=== PATIENT | male | born 1960 | race Caucasian/White ===

== ENCOUNTER 2016-10-05 08:30 | Day surgery (SDC) | payer MEDICAID, OTHER ==
[~2016-10-05] VITALS: Ht 177.8 cm; Wt 72.6 kg
[2016-10-05] MEDS ORDERED: LACTATED RINGERS 1,000 ML IV SCH ×2 (09:15→09:51)
[2016-10-05] MEDS ORDERED: SIMETHICONE 40 MG/0.6 ML 30ML ONE ×2 (09:56→14:32)
[2016-10-05] MEDS ORDERED: MIDAZOLAM HCL 5 MG/5 ML VIAL ONE (09:57)
[2016-10-05] MEDS ORDERED: FENTANYL CITRATE/PF 50MCG/ML 2ML VIAL ONE (09:57)
[2016-10-05] MEDS ORDERED: CEFAZOLIN 1000MG PREMIX 50 ML IV ONE (09:57)
[2016-10-05] MEDS ORDERED: FENT-70 TD (10:18)
[2016-10-05] MEDS ORDERED: MOME13HF2 IH (10:18)
[2016-10-05] MEDS ORDERED: HYDR4TAB56 PO (10:18)
[2016-10-05] MEDS ORDERED: ONDA4TAB51 * (10:18)
[2016-10-05] MEDS ORDERED: CEFAZOLIN SODIUM 1000MG/VIAL IV ONE (10:18)
[2016-10-05] MEDS ORDERED: ALBU18HF2 IH (10:19)
[2016-10-05] MEDS ORDERED: FENTANYL CITRATE/PF 50MCG/ML 2ML VIAL IV PRN (10:27)
[2016-10-05] MEDS ORDERED: MIDAZOLAM HCL 2 MG/2 ML VIAL IV PRN (10:27)
[2016-10-05] MEDS ORDERED: DIPHENHYDRAMINE 50MG/ML VIAL ONE (10:40)
[2016-10-05] MEDS ORDERED: DIAZEPAM 5 MG/ML 2ML CPJ IV PRN (10:40)
[2016-10-05] MEDS ORDERED: DIAZEPAM 5 MG/ML 2ML CPJ ONE (10:53)
[2016-10-05] MEDS ORDERED: SODIUM CHLORIDE 0.9% 10ML VIAL ONE (14:32)
[2016-10-05] MEDS ORDERED: DIPHENHYDRAMINE 50MG/ML VIAL IV PRN (15:15)
== END 2016-10-05 12:25 | disposition home or self-care (01) ==
LOC: OR 08:30
PROVIDERS: ATTEND Internal Medicine Gastroenterology
DX: C15.9 Malignant neoplasm of esophagus, unspecified (principal); E44.0 Moderate protein-calorie malnutrition
CPT/HCPCS: 43246; A4216; J0690; J1200; J2250; J3010; J7120